=== PATIENT | male | born 1970 | race Caucasian/White ===

== ENCOUNTER 2019-01-19 21:16 | Emergency (ER) | payer OTHER ==
[~2019-01-19] VITALS: Ht 175.3 cm; Wt 108.9 kg
--- NOTE | 2019-01-19 21:40 | NUR ---
PT BIBWIFE C/O SUDDEN ONSET R LOWER BACK PAIN X 2 HOURS. DENIES ANY TRAUMA. HX OF KIDNEY STONES. AOX4. PT ON MONITOR IN BED 2. WILL CONTINUE TO MONITOR. FAMILY AT BEDSIDE.
--- NOTE | 2019-01-19 22:00 | NUR ---
URINE COLLECTED AND SENT TO LAB
[2019-01-19] MEDS ORDERED: ONDANSETRON HCL/PF 4 MG/2 ML VIAL IVP ONE (22:30)
[2019-01-19] MEDS ORDERED: MORPHINE SULFATE INJ 2 MG/ML DISP.SYRIN IV ONE (22:30)
[2019-01-19] MEDS ORDERED: IV NS 0.9% 1,000 ML BAG IV ONE (22:30)
[2019-01-19] MEDS ORDERED: ONDANSETRON HCL/PF 4 MG/2 ML VIAL ONE (22:33)
[2019-01-19] MEDS ORDERED: MORPHINE SULFATE INJ 4 MG/ML DISP.SYRIN ONE (22:33)
[2019-01-19 22:42] LABS: BASOPHILS # (AUTO) 0.1 /CMM (0.0-0.2); BASOPHILS % (AUTO) 0.8 % (0.0-2.0); EOSINOPHILS % (AUTO) 2.2 % (0.0-6.0); HEMATOCRIT 45 % (39-51); HEMOGLOBIN 15.7 g/dL (13.5-17.5); LYMPHOCYTES # (AUTO) 2.1 /CMM (0.8-4.8); LYMPHOCYTES % (AUTO) 21.3 % (20.0-44.0); MEAN CORPUSCULAR HGB CONC 35 g/dl (31.0-36.0); MEAN CORPUSCULAR VOLUME 89 fL (80-96); MONOCYTES # (AUTO) 0.7 /CMM (0.1-1.30); MONOCYTES % (AUTO) 7.5 % (2.0-12.0); NEUTROPHILS # (AUTO) 6.7 /CMM (1.8-8.9); NEUTROPHILS % (AUTO) 68.2 % (43.0-81.0); PLATELET COUNT (AUTO) 271 /CMM (150-450); RED BLOOD CELL COUNT(AUTO) 5.07 MIL/uL (4.5-6.0); WHITE BLOOD COUNT (AUTO) 9.8 K/uL (4.3-11.0)
--- NOTE | 2019-01-19 22:49 | NUR ---
PT TAKEN TO CT VIA [facility]
--- NOTE | 2019-01-19 22:59 | NUR ---
PT RETURNED FROM CT. TOLERATED WELL.
[2019-01-19] MEDS ORDERED: MORPHINE SULFATE INJ 2 MG/ML DISP.SYRIN IM ONE (23:00)
[2019-01-19 23:08] LABS: ALBUMIN 3.9 g/dL (3.4-5.0); BILIRUBIN,TOTAL 0.3 mg/dL (0.2-1.0); CALCIUM, SERUM 9.2 mg/dL (8.5-10.1); CREATININE 1.3 mg/dL (0.6-1.3); TOTAL PROTEIN, SERUM 7.5 g/dL (6.4-8.2)
[2019-01-19 23:28] LABS: POTASSIUM 4.3 mmol/L (3.5-5.1)
[2019-01-19] MEDS ORDERED: KETOROLAC TROMETHAMINE INJ 30 MG/ML VIAL IV ONE (23:30)
[2019-01-19] MEDS ORDERED: HYDROMORPHONE INJ 0.5 MG/0.5 ML SYRINGE IV ONE (23:30)
[2019-01-19 23:35] LABS: BILIRUBIN,URINE Negative (NEGATIVE); BLOOD, URINE Moderate Ery/uL (NEGATIVE); COLOR,URINE Yellow (YELLOW); KETONES,URINE Negative (NEGATIVE); LEUKOCYTE ESTERASE ,URINE Negative (NEGATIVE); NITRITE, URINE Negative (NEGATIVE); PROTEIN,URINE 30 mg/dl (NEGATIVE); UGLUCOSE Negative (NEGATIVE); UROBILINOGEN,URINE 0.2 EU/dL (0.2)
[2019-01-19 23:36] LABS: APPEARANCE,URINE SLIGHTLY HAZY (CLEAR)
[2019-01-19 23:38] LABS: BACTERIA,URINE None seen /HPF (None Seen); SQUAMOUS EPITHELIAL CELL,UR Few /HPF (None Seen); WBC,URINE 0-2 /HPF (0-3)
[2019-01-19] MEDS ORDERED: HYDROMORPHONE 1 MG/1 ML DISP.SYRIN ONE (23:45)
[2019-01-19] MEDS ORDERED: KETOROLAC TROMETHAMINE INJ 30 MG/ML VIAL ONE (23:45)
[2019-01-20 01:41] VITALS: BP 142/75
--- NOTE | 2019-01-20 01:48 | NUR ---
IV removed. Catheter intact and site benign. Pressure and 4x4 applied to site. No bleeding noted.Patient discharged to home in stable condition. Written and verbal after care instructions given. Patient verbalizes understanding of instruction. PT AMBULATORY WITH STEADY GAIT ACCOMPANIED BY .
== END 2019-01-20 01:50 | disposition home or self-care (01) ==
LOC: ER 21:20
DX: N23 Unspecified renal colic (principal); E87.1 Hypo-osmolality and hyponatremia; K80.20 Calculus of gallbladder without cholecystitis without obstruction; K21.9 Gastro-esophageal reflux disease without esophagitis; Z98.890 Other specified postprocedural states
CPT/HCPCS: 36415; 74176; 80048; 80076; 81001; 83690; 85025; 96361; 96374; 96375; 99284; J1170; J1885; J2270; J2405; J7030; 81000-TC; 87086-TC